=== PATIENT | female | born 1935 | race Caucasian/White ===

== ENCOUNTER 2016-03-11 10:34 | Outpatient (RCR) | payer MEDICARE, OTHER ==
[2015-12-30 11:47] LABS: ALANINE AMINOTRANSFERASE 18 U/L (0-55); ALBUMIN 3.8 G/DL (3.2-4.5); ANION GAP 11 MMOL/L (5-14); ASPARTATE AMINO TRANSFERASE 17 U/L (5-34); BILIRUBIN,TOTAL 0.7 MG/DL (0.1-1.0); BLOOD UREA NITROGEN 10 MG/DL (7-18); BUN/CREATININE RATIO 16; CARBON DIOXIDE 25 MMOL/L (21-32); CHLORIDE 104 MMOL/L (98-107); CREATININE SERUM 0.64 MG/DL (0.60-1.30); GFR ESTIMATED > 60; GLUCOSE 97 MG/DL (70-105); LACTATE DEHYDROGENASE 336 U/L (125-220); POTASSIUM 4.2 MMOL/L (3.6-5.0); SODIUM 140 MMOL/L (135-145); TOTAL PROTEIN 6.3 G/DL (6.4-8.2)
[2015-12-30 15:39] LABS: MEAN CORPUSCULAR HEMOGLOBIN 24 PG (25-34); MEAN CORPUSCULAR HGB CONC 30 G/DL (32-36); MEAN CORPUSCULAR VOLUME 79 FL (80-99); PLATELET COUNT 63 10^3/uL (130-400); RED CELL DISTRIBUTION WIDTH 20.9 % (10.0-14.5)
[2015-12-30 15:41] LABS: BAND NEUTROPHILS 14 %; BASOPHILS % (MANUAL) 4 %; EOSINOPHILS % (MANUAL) 0 %; LYMPHOCYTES % (MANUAL) 11 %; METAMYELOCYTES % 6 %; NEUTROPHILS % (MANUAL) 60 %
[2015-12-30 15:42] LABS: POIKILOCYTOSIS MODERATE; REACTIVE LYMPHOCYTES 3 %; TEAR DROP CELLS MODERATE
[2015-12-30 15:45] LABS: ANISOCYTOSIS MODERATE
[2016-01-06 15:13] LABS: BASOPHILS # (AUTO) 0.6 10^3/uL (0.0-0.1); BASOPHILS % (AUTO) 3 % (0-10); EOSINOPHILS # (AUTO) 0.1 10^3/uL (0.0-0.3); EOSINOPHILS % (AUTO) 0 % (0-10); LYMPHOCYTES # (AUTO) 4.4 X 10^3 (1.0-4.0); LYMPHOCYTES % (AUTO) 18 % (12-44); MEAN CORPUSCULAR HEMOGLOBIN 24 PG (25-34); MEAN CORPUSCULAR HGB CONC 31 G/DL (32-36); MEAN CORPUSCULAR VOLUME 78 FL (80-99); MONOCYTES # (AUTO) 0.7 X 10^3 (0.0-1.0); MONOCYTES % (AUTO) 3 % (0-12); NEUTROPHILS # (AUTO) 18.9 X 10^3 (1.8-7.8); NEUTROPHILS % (AUTO) 76 % (42-75); RED BLOOD COUNT 5.51 10^6/uL (4.35-5.85); RED CELL DISTRIBUTION WIDTH 21.4 % (10.0-14.5); WHITE BLOOD COUNT 24.8 10^3/uL (4.3-11.0)
[2016-01-06 17:20] LABS: PLATELET COUNT 60 10^3/uL (130-400)
[2016-01-06 17:22] LABS: %SAT TOTAL IRON BINDING CAPIC 24 % (15-50); TIBC 363 ug/dL (280-380)
[2016-01-07 08:08] LABS: FERRITIN 48 ng/mL (15-150); UIBC 275 ug/dL (55-450)
[2016-01-10 07:15] LABS: BCR ABL FISH QL SEE FOOTNOTE
[2016-01-13 09:36] LABS: JAK2 MUTATION Detected
[2016-01-13 10:30] LABS: BASOPHILS # (AUTO) 0.6 10^3/uL (0.0-0.1); BASOPHILS % (AUTO) 3 % (0-10); EOSINOPHILS # (AUTO) 0.1 10^3/uL (0.0-0.3); EOSINOPHILS % (AUTO) 1 % (0-10); LYMPHOCYTES # (AUTO) 3.5 X 10^3 (1.0-4.0); LYMPHOCYTES % (AUTO) 18 % (12-44); MEAN CORPUSCULAR HEMOGLOBIN 24 PG (25-34); MEAN CORPUSCULAR HGB CONC 30 G/DL (32-36); MEAN CORPUSCULAR VOLUME 78 FL (80-99); MONOCYTES # (AUTO) 0.6 X 10^3 (0.0-1.0); MONOCYTES % (AUTO) 3 % (0-12); NEUTROPHILS # (AUTO) 14.8 X 10^3 (1.8-7.8); NEUTROPHILS % (AUTO) 76 % (42-75); PLATELET COUNT 40 10^3/uL (130-400); RED BLOOD COUNT 5.64 10^6/uL (4.35-5.85); RED CELL DISTRIBUTION WIDTH 21.4 % (10.0-14.5); RETICULOCYTE % 1.61 % (0.50-2.40); WHITE BLOOD COUNT 19.5 10^3/uL (4.3-11.0)
[2016-01-13 11:47] LABS: BAND NEUTROPHILS 4 %; BASOPHILS % (MANUAL) 3 %; EOSINOPHILS % (MANUAL) 1 %; LYMPHOCYTES % (MANUAL) 14 %; METAMYELOCYTES % 1 %; NEUTROPHILS % (MANUAL) 72 %
[2016-01-13 11:48] LABS: ANISOCYTOSIS MARKED; POLYCHROMASIA SLIGHT; TEAR DROP CELLS MODERATE
[2016-02-11 12:18] LABS: MP RPT # MP-16-0013240
[~2016-03-11 10:34] MED LIST: LIDOCAINE 2% ONE
[2016-03-11 11:25] LABS: ALANINE AMINOTRANSFERASE 22 U/L (0-55); ALBUMIN 4.2 G/DL (3.2-4.5); ANION GAP 3 MMOL/L (5-14); ASPARTATE AMINO TRANSFERASE 19 U/L (5-34); BILIRUBIN,TOTAL 0.6 MG/DL (0.1-1.0); BLOOD UREA NITROGEN 17 MG/DL (7-18); BUN/CREATININE RATIO 26; CALCIUM 9.4 MG/DL (8.5-10.1); CARBON DIOXIDE 32 MMOL/L (21-32); CHLORIDE 104 MMOL/L (98-107); CREATININE SERUM 0.65 MG/DL (0.60-1.30); GFR ESTIMATED > 60; GLUCOSE 92 MG/DL (70-105); LACTATE DEHYDROGENASE 369 U/L (125-220); POTASSIUM 4.7 MMOL/L (3.6-5.0); SODIUM 139 MMOL/L (135-145); TOTAL PROTEIN 6.6 G/DL (6.4-8.2)
[2016-03-11 11:51] LABS: MEAN CORPUSCULAR HEMOGLOBIN 24 PG (25-34); MEAN CORPUSCULAR HGB CONC 30 G/DL (32-36); MEAN CORPUSCULAR VOLUME 78 FL (80-99); RED BLOOD COUNT 5.77 10^6/uL (4.35-5.85); RED CELL DISTRIBUTION WIDTH 20.8 % (10.0-14.5); WHITE BLOOD COUNT 19.5 10^3/uL (4.3-11.0)
[2016-03-11 13:52] LABS: PLATELET COUNT 29 10^3/uL (130-400)
== END 2016-03-29 | disposition home or self-care (01) ==
LOC: ONC 10:34
PROVIDERS: ATTEND Internal Medicine Hematology & Oncology
DX: D47.1 Chronic myeloproliferative disease (principal); D69.6 Thrombocytopenia, unspecified; D72.829 Elevated white blood cell count, unspecified; R16.1 Splenomegaly, not elsewhere classified; Z79.899 Other long term (current) drug therapy
CPT/HCPCS: 36415; 38221; 80053; 80074; 81270; 82728; 83540; 83615; 85007; 85025; 85027; 85045; 88184; 88185; 88305; 88311; 88313; 88341; 88342; 88368; 88369; 99213; 99214

== ENCOUNTER 2016-06-17 10:36 | Outpatient (RCR) | payer MEDICARE, OTHER ==
--- OUTSIDE RECORDS SUMMARY | 2016-04-08 10:44 | XMS REPORT | Continuity of Care Document ---
Author Author [facility] Organization [facility] Address Unknown Phone Unavailable Care Team Providers Care Soil Engineer Name Role Phone MARCK NAGY MD PCP Insurance Providers Payer Name Policy Number Subscriber Name Relationship [employer] [id number] Flor Correa 18 Self / Same As Patient [facility] [place] [id number] Kuldip Correa 01 Problems No problem information available. Medications No medication information available. Social History Social History Problem Response Recorded Date/Time Recent Foreign Travel No 12/30/2015 9:52am Hospital Discharge Instructions No hospital discharge instructions. Plan of Care Prescriptions See Medication Section Functional Status No functional status results. Allergies, Adverse Reactions, Alerts Unable to obtain allergies. Immunizations No immunization records. Vital Signs No known vital signs results. Results Laboratory Results Test Name Result Units Flags Reference Collection Date/Time Result Date/ Time Comments White Blood Count 19.5 10^3/uL H 4.3-11.0 03/11/2016 10:54am 03/11/2016 1 :53pm Red Blood Count 5.77 10^6/uL 4.35-5.85 03/11/2016 10:54am 03/11/2016 1: 53pm Hemoglobin 13.6 G/DL 11.5-16.0 03/11/2016 10:54am 03/11/2016 1:53pm Hematocrit 45 % 35-52 03/11/2016 10:54am 03/11/2016 1:53pm Mean Corpuscular Volume 78 FL L 80-99 03/11/2016 10:54am 03/11/2016 1: 53pm Mean Corpuscular Hemoglobin 24 PG L 25-34 03/11/2016 10:54am 03/11/2016 1 :53pm Mean Corpuscular Hemoglobin Concent 30 G/DL L 32-36 03/11/2016 10:54am 1:53pm Red Cell Distribution Width 20.8 % H 10.0-14.5 03/11/2016 10:54am 2015 1:53pm Platelet Count 29 10^3/uL CL 130-400 03/11/2016 10:54am 03/11/2016 1: 53pm RESULTS GIVEN TO AT 13:40. LJJ Neutrophils (%) (Auto) 76 % H 42-75 01/13/2016 10:01/13/2016 11: 47am Lymphocytes (%) (Auto) 18 % 12-44 01/13/2016 10:01/13/2016 11: 47am Monocytes (%) (Auto) 3 % 0-12 01/13/2016 10:01/13/2016 11:47am Eosinophils (%) (Auto) 1 % 0-10 01/13/2016 10:01/13/2016 11:47am Basophils (%) (Auto) 3 % 0-10 01/13/2016 10:01/13/2016 11:47am Neutrophils # (Auto) 14.8 X 10^3 H 1.8-7.8 01/13/2016 10:01/13/2016 11:47am Lymphocytes # (Auto) 3.5 X 10^3 1.0-4.0 01/13/2016 10:01/13/2016 11:47am Monocytes # (Auto) 0.6 X 10^3 0.0-1.0 01/13/2016 10:01/13/2016 11: 47am Eosinophils # (Auto) 0.1 10^3/uL 0.0-0.3 01/13/2016 10:am 01/13/2016 11:47am Basophils # (Auto) 0.6 10^3/uL H 0.0-0.1 01/13/2016 10:01/13/2016 11 :47am Neutrophils % (Manual) 72 % 01/13/2016 10:am 01/13/2016 11:48am Band Neutrophils 4 % 01/13/2016 10:am 01/13/2016 11:48am Lymphocytes % (Manual) 14 % 01/13/2016 10:am 01/13/2016 11:48am Monocytes % (Manual) 5 % 01/13/2016 10:am 01/13/2016 11:48am Eosinophils % (Manual) 1 % 01/13/2016 10:am 01/13/2016 11:48am Basophils % (Manual) 3 % 01/13/2016 10:am 01/13/2016 11:48am Metamyelocytes % 1 % 01/13/2016 10:am 01/13/2016 11:48am Reactive Lymphocytes 3 % 12/30/2015 9:15am 12/30/2015 3:45pm Nucleated Red Blood Cells 1 12/30/2015 9:am 12/30/2015 3:45pm Smudge Cells SLIGHT 12/30/2015 9:15am 12/30/2015 3:45pm Polychromasia SLIGHT 01/13/2016 10:am 01/13/2016 11:48am Poikilocytosis MODERATE 12/30/2015 9:15am 12/30/2015 3:45pm Basophilic Stippling SLIGHT 01/13/2016 10:am 01/13/2016 11:48am Anisocytosis MARKED 01/13/2016 10:am 01/13/2016 11:48am Tear Drop Cells MODERATE 01/13/2016 10:am 01/13/2016 11:48am Elliptocytes MODERATE 12/30/2015 9:15am 12/30/2015 3:45pm Toxic Granulation 2+ 12/30/2015 9:15am 12/30/2015 3:45pm Absolute Reticulocyte Count 91 10e9/L H 24-90 01/13/2016 10:am 2015 11:47am Percent Reticulocyte Count 1.61 % 0.50-2.40 01/13/2016 10:26am 2015 11:47am Sodium Level 139 MMOL/L 135-145 03/11/2016 10:54am 03/11/2016 11:27am Potassium Level 4.7 MMOL/L 3.6-5.0 03/11/2016 10:54am 03/11/2016 11: 27am Chloride Level 104 MMOL/L 98-107 03/11/2016 10:54am 03/11/2016 11:27am Carbon Dioxide Level 32 MMOL/L 21-32 03/11/2016 10:54am 03/11/2016 11: 27am Anion Gap 3 MMOL/L L 5-14 03/11/2016 10:54am 03/11/2016 11:27am Blood Urea Nitrogen 17 MG/DL 7-18 03/11/2016 10:54am 03/11/2016 11: 27am Creatinine 0.65 MG/DL 0.60-1.30 03/11/2016 10:54am 03/11/2016 11:27am BUN/Creatinine Ratio 26 03/11/2016 10:54am 03/11/2016 11:27am Estimat Glomerular Filtration Rate > 60 03/11/2016 10:54am 2015 11:27am GFR INTERPRETIVE DATA UNITS FOR ESTIMATED GFR (eGFR): mL/min/1.73 M2 REFERENCE RANGE FOR ESTIMATED GFR (eGFR) eGFR NORMAL eGFR >60 MODERATELY DECREASED eGFR 30-59 SEVERLY DECREASED eGFR 15-29 KIDNEY FAILURE <15 (OR DIALYSIS) Glucose Level 92 MG/DL 70-105 03/11/2016 10:54am 03/11/2016 11:27am Calcium Level 9.4 MG/DL 8.5-10.1 03/11/2016 10:54am 03/11/2016 11:27am Total Bilirubin 0.6 MG/DL 0.1-1.0 03/11/2016 10:54am 03/11/2016 11: 27am Alkaline Phosphatase 63 U/L 40-136 03/11/2016 10:54am 03/11/2016 11: 27am Aspartate Amino Transf (AST/SGOT) 19 U/L 5-34 03/11/2016 10:54am 2015 11:27am Alanine Aminotransferase (ALT/SGPT) 22 U/L 0-55 03/11/2016 10:54am 11:27am Lactate Dehydrogenase 369 U/L H 125-220 03/11/2016 10:54am 03/11/2016 11: 27am Total Protein 6.6 G/DL 6.4-8.2 03/11/2016 10:54am 03/11/2016 11:27am Albumin 4.2 G/DL 3.2-4.5 03/11/2016 10:54am 03/11/2016 11:27am Ferritin 48 ng/mL 15-150 01/06/2016 3:09pm 01/07/2016 8:08am Test performed at [facility], CLIA# [id number] [address] [facility] [place] [address] Iron Level 88 ug/dL 35-180 01/06/2016 3:09pm 01/07/2016 8:08am Transferrin % Saturation 24 % 15-50 01/06/2016 3:09pm 01/07/2016 8: 08am Total Iron Binding Capacity 363 ug/dL 280-380 01/06/2016 3:09pm 2015 8:08am Unsaturated Iron Binding Capacity 275 ug/dL 55-450 01/06/2016 3:09pm 8:08am Test performed at [facility], CLIA# [id number] [address] [place] [address] Flow Cytometry Pathologist Review [id number] 01/06/2016 3:09pm 02/11/2016 12:18pm Procedures No known history of procedures. Encounters Encounter Location Arrival/Admit Date Discharge/Depart Date Attending Provider Discharged Recurring [facility] 03/11/16 10:34am 11:59pm WILFRED DENNY
[2016-04-08 11:35] LABS: ALANINE AMINOTRANSFERASE 26 U/L (0-55); ALBUMIN 4.2 G/DL (3.2-4.5); ANION GAP 10 MMOL/L (5-14); ASPARTATE AMINO TRANSFERASE 20 U/L (5-34); BILIRUBIN,TOTAL 0.5 MG/DL (0.1-1.0); BLOOD UREA NITROGEN 19 MG/DL (7-18); BUN/CREATININE RATIO 27; CALCIUM 9.3 MG/DL (8.5-10.1); CARBON DIOXIDE 26 MMOL/L (21-32); CHLORIDE 105 MMOL/L (98-107); CREATININE SERUM 0.71 MG/DL (0.60-1.30); GFR ESTIMATED > 60; GLUCOSE 76 MG/DL (70-105); LACTATE DEHYDROGENASE 418 U/L (125-220); POTASSIUM 4.4 MMOL/L (3.6-5.0); SODIUM 141 MMOL/L (135-145); TOTAL PROTEIN 6.4 G/DL (6.4-8.2)
[2016-04-08 11:40] LABS: MEAN CORPUSCULAR HEMOGLOBIN 24 PG (25-34); MEAN CORPUSCULAR HGB CONC 31 G/DL (32-36); MEAN CORPUSCULAR VOLUME 78 FL (80-99); RED BLOOD COUNT 5.12 10^6/uL (4.35-5.85); WHITE BLOOD COUNT 23.5 10^3/uL (4.3-11.0)
[2016-04-08 11:41] LABS: PLATELET COUNT 33 10^3/uL (130-400)
[2016-05-06 10:55] LABS: BASOPHILS # (AUTO) 0.6 10^3/uL (0.0-0.1); BASOPHILS % (AUTO) 3 % (0-10); EOSINOPHILS # (AUTO) 0.1 10^3/uL (0.0-0.3); EOSINOPHILS % (AUTO) 1 % (0-10); LYMPHOCYTES # (AUTO) 7.2 X 10^3 (1.0-4.0); LYMPHOCYTES % (AUTO) 36 % (12-44); MEAN CORPUSCULAR HEMOGLOBIN 25 PG (25-34); MEAN CORPUSCULAR HGB CONC 31 G/DL (32-36); MEAN CORPUSCULAR VOLUME 80 FL (80-99); MONOCYTES # (AUTO) 0.4 X 10^3 (0.0-1.0); MONOCYTES % (AUTO) 2 % (0-12); NEUTROPHILS # (AUTO) 11.9 X 10^3 (1.8-7.8); NEUTROPHILS % (AUTO) 59 % (42-75); PLATELET COUNT 47 10^3/uL (130-400); RED BLOOD COUNT 4.74 10^6/uL (4.35-5.85); RED CELL DISTRIBUTION WIDTH 22.6 % (10.0-14.5); WHITE BLOOD COUNT 20.2 10^3/uL (4.3-11.0)
[2016-05-06 11:15] LABS: ALANINE AMINOTRANSFERASE 21 U/L (0-55); ALBUMIN 4.5 G/DL (3.2-4.5); ANION GAP 7 MMOL/L (5-14); ASPARTATE AMINO TRANSFERASE 20 U/L (5-34); BILIRUBIN,TOTAL 0.8 MG/DL (0.1-1.0); BLOOD UREA NITROGEN 15 MG/DL (7-18); BUN/CREATININE RATIO 21; CALCIUM 9.1 MG/DL (8.5-10.1); CARBON DIOXIDE 28 MMOL/L (21-32); CHLORIDE 105 MMOL/L (98-107); CREATININE SERUM 0.71 MG/DL (0.60-1.30); GFR ESTIMATED > 60; GLUCOSE 85 MG/DL (70-105); LACTATE DEHYDROGENASE 424 U/L (125-220); POTASSIUM 4.3 MMOL/L (3.6-5.0); SODIUM 140 MMOL/L (135-145); TOTAL PROTEIN 6.4 G/DL (6.4-8.2)
[2016-06-17 11:35] LABS: ALANINE AMINOTRANSFERASE 27 U/L (0-55); ALBUMIN 4.2 G/DL (3.2-4.5); ANION GAP 6 MMOL/L (5-14); ASPARTATE AMINO TRANSFERASE 23 U/L (5-34); BILIRUBIN,TOTAL 0.8 MG/DL (0.1-1.0); BLOOD UREA NITROGEN 14 MG/DL (7-18); BUN/CREATININE RATIO 19; CALCIUM 9.4 MG/DL (8.5-10.1); CARBON DIOXIDE 32 MMOL/L (21-32); CHLORIDE 104 MMOL/L (98-107); CREATININE SERUM 0.74 MG/DL (0.60-1.30); GFR ESTIMATED > 60; GLUCOSE 95 MG/DL (70-105); LACTATE DEHYDROGENASE 431 U/L (125-220); POTASSIUM 4.6 MMOL/L (3.6-5.0); SODIUM 142 MMOL/L (135-145); TOTAL PROTEIN 6.4 G/DL (6.4-8.2)
[2016-06-17 11:50] LABS: BASOPHILS # (AUTO) 0.3 10^3/uL (0.0-0.1); BASOPHILS % (AUTO) 2 % (0-10); EOSINOPHILS # (AUTO) 0.1 10^3/uL (0.0-0.3); EOSINOPHILS % (AUTO) 1 % (0-10); LYMPHOCYTES # (AUTO) 4.9 X 10^3 (1.0-4.0); LYMPHOCYTES % (AUTO) 31 % (12-44); MEAN CORPUSCULAR HEMOGLOBIN 27 PG (25-34); MEAN CORPUSCULAR HGB CONC 31 G/DL (32-36); MEAN CORPUSCULAR VOLUME 86 FL (80-99); MONOCYTES # (AUTO) 0.4 X 10^3 (0.0-1.0); MONOCYTES % (AUTO) 3 % (0-12); NEUTROPHILS # (AUTO) 10.1 X 10^3 (1.8-7.8); NEUTROPHILS % (AUTO) 64 % (42-75); PLATELET COUNT 38 10^3/uL (130-400); RED BLOOD COUNT 4.08 10^6/uL (4.35-5.85); RED CELL DISTRIBUTION WIDTH 22.4 % (10.0-14.5); WHITE BLOOD COUNT 15.9 10^3/uL (4.3-11.0)
[2016-06-17 11:52] LABS: BILIRUBIN,URINE NEGATIVE (NEGATIVE); KETONES,URINE NEGATIVE (NEGATIVE); LEUKOCYTE ESTERASE ,URINE NEGATIVE (NEGATIVE); NITRITE,URINE NEGATIVE (NEGATIVE); PH,URINE 7 (5-9); PROTEIN,URINE NEGATIVE (NEGATIVE); UROBILINOGEN,URINE NORMAL (NORMAL)
[2016-06-17 12:03] LABS: SQUAMOUS EPITHELIAL CELL,UR RARE /HPF
== END 2016-07-07 | disposition home or self-care (01) ==
LOC: ONC 10:36
PROVIDERS: ATTEND Internal Medicine Hematology & Oncology
DX: D47.1 Chronic myeloproliferative disease (principal); D69.6 Thrombocytopenia, unspecified; Z79.899 Other long term (current) drug therapy
CPT/HCPCS: 36415; 80053; 81000; 83615; 85025; 99213

== ENCOUNTER 2016-10-14 10:42 | Outpatient (RCR) | payer MEDICARE, OTHER ==
[2016-08-19 11:33] LABS: MEAN CORPUSCULAR HEMOGLOBIN 27 PG (25-34); MEAN CORPUSCULAR HGB CONC 31 G/DL (32-36); MEAN CORPUSCULAR VOLUME 85 FL (80-99); PLATELET COUNT 56 10^3/uL (130-400); RED CELL DISTRIBUTION WIDTH 18.5 % (10.0-14.5); WHITE BLOOD COUNT 29.6 10^3/uL (4.3-11.0)
[2016-08-19 11:47] LABS: ALANINE AMINOTRANSFERASE 16 U/L (0-55); ALBUMIN 4.1 G/DL (3.2-4.5); ANION GAP 10 MMOL/L (5-14); ASPARTATE AMINO TRANSFERASE 18 U/L (5-34); BILIRUBIN,TOTAL 0.5 MG/DL (0.1-1.0); BLOOD UREA NITROGEN 14 MG/DL (7-18); BUN/CREATININE RATIO 20; CALCIUM 9.8 MG/DL (8.5-10.1); CARBON DIOXIDE 29 MMOL/L (21-32); CHLORIDE 101 MMOL/L (98-107); CREATININE SERUM 0.71 MG/DL (0.60-1.30); GFR ESTIMATED > 60; GLUCOSE 91 MG/DL (70-105); LACTATE DEHYDROGENASE 447 U/L (125-220); POTASSIUM 4.6 MMOL/L (3.6-5.0); SODIUM 140 MMOL/L (135-145)
[2016-10-14 11:18] LABS: BASOPHILS # (AUTO) 0.6 10^3/uL (0.0-0.1); BASOPHILS % (AUTO) 3 % (0-10); EOSINOPHILS # (AUTO) 0.1 10^3/uL (0.0-0.3); EOSINOPHILS % (AUTO) 0 % (0-10); LYMPHOCYTES # (AUTO) 6.4 X 10^3 (1.0-4.0); LYMPHOCYTES % (AUTO) 36 % (12-44); MEAN CORPUSCULAR HEMOGLOBIN 26 PG (25-34); MEAN CORPUSCULAR HGB CONC 30 G/DL (32-36); MEAN CORPUSCULAR VOLUME 85 FL (80-99); MONOCYTES # (AUTO) 0.7 X 10^3 (0.0-1.0); MONOCYTES % (AUTO) 4 % (0-12); NEUTROPHILS # (AUTO) 10.4 X 10^3 (1.8-7.8); NEUTROPHILS % (AUTO) 57 % (42-75); RED BLOOD COUNT 4.75 10^6/uL (4.35-5.85); WHITE BLOOD COUNT 18.1 10^3/uL (4.3-11.0)
[2016-10-14 12:00] LABS: PLATELET COUNT 33 10^3/uL (130-400)
[2016-10-14 12:04] LABS: ALANINE AMINOTRANSFERASE 24 U/L (0-55); ALBUMIN 4.3 GM/DL (3.2-4.5); ANION GAP 4 MMOL/L (5-14); ASPARTATE AMINO TRANSFERASE 21 U/L (5-34); BILIRUBIN,TOTAL 0.7 MG/DL (0.1-1.0); BLOOD UREA NITROGEN 14 MG/DL (7-18); BUN/CREATININE RATIO 19; CALCIUM 9.3 MG/DL (8.5-10.1); CARBON DIOXIDE 33 MMOL/L (21-32); CHLORIDE 103 MMOL/L (98-107); CREATININE SERUM 0.72 MG/DL (0.60-1.30); GFR ESTIMATED > 60; GLUCOSE 90 MG/DL (70-105); LACTATE DEHYDROGENASE 446 U/L (125-220); POTASSIUM 4.4 MMOL/L (3.6-5.0); SODIUM 140 MMOL/L (135-145); TOTAL PROTEIN 6.5 GM/DL (6.4-8.2)
== END 2016-11-17 | disposition home or self-care (01) ==
LOC: ONC 10:42
PROVIDERS: ATTEND Internal Medicine Hematology & Oncology
DX: D69.6 Thrombocytopenia, unspecified (principal); D75.81 Myelofibrosis; D72.829 Elevated white blood cell count, unspecified; Z79.899 Other long term (current) drug therapy
CPT/HCPCS: 36415; 80053; 83615; 85025; 99213

== ENCOUNTER 2016-12-15 10:10 | Outpatient (RCR) | payer MEDICARE, OTHER ==
[2016-12-15 10:41] LABS: ALANINE AMINOTRANSFERASE 27 U/L (0-55); ALBUMIN 4.3 GM/DL (3.2-4.5); ANION GAP 10 MMOL/L (5-14); ASPARTATE AMINO TRANSFERASE 23 U/L (5-34); BILIRUBIN,TOTAL 0.6 MG/DL (0.1-1.0); BLOOD UREA NITROGEN 16 MG/DL (7-18); BUN/CREATININE RATIO 21; CALCIUM 9.5 MG/DL (8.5-10.1); CARBON DIOXIDE 30 MMOL/L (21-32); CHLORIDE 100 MMOL/L (98-107); CREATININE SERUM 0.75 MG/DL (0.60-1.30); GFR ESTIMATED > 60; GLUCOSE 100 MG/DL (70-105); LACTATE DEHYDROGENASE 441 U/L (125-220); POTASSIUM 3.6 MMOL/L (3.6-5.0); SODIUM 140 MMOL/L (135-145)
[2016-12-15 10:43] LABS: BASOPHILS # (AUTO) 0.7 10^3/uL (0.0-0.1); BASOPHILS % (AUTO) 3 % (0-10); EOSINOPHILS # (AUTO) 0.1 10^3/uL (0.0-0.3); EOSINOPHILS % (AUTO) 0 % (0-10); LYMPHOCYTES # (AUTO) 6.9 X 10^3 (1.0-4.0); LYMPHOCYTES % (AUTO) 33 % (12-44); MEAN CORPUSCULAR HEMOGLOBIN 27 PG (25-34); MEAN CORPUSCULAR HGB CONC 31 G/DL (32-36); MEAN CORPUSCULAR VOLUME 87 FL (80-99); MONOCYTES # (AUTO) 0.3 X 10^3 (0.0-1.0); MONOCYTES % (AUTO) 1 % (0-12); NEUTROPHILS # (AUTO) 13.2 X 10^3 (1.8-7.8); NEUTROPHILS % (AUTO) 62 % (42-75); PLATELET COUNT 51 10^3/uL (130-400); RED BLOOD COUNT 4.61 10^6/uL (4.35-5.85); RED CELL DISTRIBUTION WIDTH 19.2 % (10.0-14.5)
[2016-12-15 10:44] LABS: WHITE BLOOD COUNT 21.2 10^3/uL (4.3-11.0)
== END 2016-12-19 | disposition home or self-care (01) ==
LOC: ONC 10:10
PROVIDERS: ATTEND Internal Medicine Hematology & Oncology
DX: D69.6 Thrombocytopenia, unspecified (principal); D75.81 Myelofibrosis; D72.829 Elevated white blood cell count, unspecified; Z79.899 Other long term (current) drug therapy
CPT/HCPCS: 36415; 80053; 83615; 85025; 99213

== ENCOUNTER 2017-02-17 11:16 | Outpatient (RCR) | payer MEDICARE, OTHER ==
[2017-02-17 11:38] LABS: BASOPHILS # (AUTO) 0.6 10^3/uL (0.0-0.1); BASOPHILS % (AUTO) 3 % (0-10); EOSINOPHILS # (AUTO) 0.1 10^3/uL (0.0-0.3); EOSINOPHILS % (AUTO) 0 % (0-10); HEMATOCRIT 42 % (35-52); HEMOGLOBIN 12.7 G/DL (11.5-16.0); LYMPHOCYTES # (AUTO) 6.4 X 10^3 (1.0-4.0); LYMPHOCYTES % (AUTO) 32 % (12-44); MEAN CORPUSCULAR HEMOGLOBIN 27 PG (25-34); MEAN CORPUSCULAR HGB CONC 31 G/DL (32-36); MEAN CORPUSCULAR VOLUME 88 FL (80-99); MONOCYTES # (AUTO) 0.3 X 10^3 (0.0-1.0); MONOCYTES % (AUTO) 1 % (0-12); NEUTROPHILS # (AUTO) 12.7 X 10^3 (1.8-7.8); NEUTROPHILS % (AUTO) 64 % (42-75); PLATELET COUNT 48 10^3/uL (130-400); RED BLOOD COUNT 4.76 10^6/uL (4.35-5.85); RED CELL DISTRIBUTION WIDTH 18.4 % (10.0-14.5)
[2017-02-17 11:52] LABS: ALANINE AMINOTRANSFERASE 23 U/L (0-55); ALBUMIN 4.5 GM/DL (3.2-4.5); ALKALINE PHOSPHATASE 56 U/L (40-136); BILIRUBIN,TOTAL 0.8 MG/DL (0.1-1.0); BUN/CREATININE RATIO 17; CALCIUM 9.7 MG/DL (8.5-10.1); CARBON DIOXIDE 33 MMOL/L (21-32); CHLORIDE 102 MMOL/L (98-107); CREATININE SERUM 0.71 MG/DL (0.60-1.30); GFR ESTIMATED > 60; GLUCOSE 86 MG/DL (70-105); POTASSIUM 4.1 MMOL/L (3.6-5.0); SODIUM 142 MMOL/L (135-145); TOTAL PROTEIN 7.3 GM/DL (6.4-8.2)
== END 2017-04-14 07:41 | disposition home or self-care (01) ==
LOC: ONC 11:16
PROVIDERS: ATTEND Internal Medicine Hematology & Oncology
DX: D69.6 Thrombocytopenia, unspecified (principal); D75.81 Myelofibrosis; D72.829 Elevated white blood cell count, unspecified; Z79.899 Other long term (current) drug therapy
CPT/HCPCS: 36415; 80053; 83615; 85025; 99213

== ENCOUNTER 2017-04-14 10:33 | Outpatient (RCR) | payer MEDICARE, OTHER ==
[2017-04-14 10:58] LABS: BASOPHILS # (AUTO) 0.5 10^3/uL (0.0-0.1); BASOPHILS % (AUTO) 3 % (0-10); EOSINOPHILS % (AUTO) 0 % (0-10); HEMATOCRIT 40 % (35-52); HEMOGLOBIN 12.7 G/DL (11.5-16.0); LYMPHOCYTES # (AUTO) 5.5 X 10^3 (1.0-4.0); LYMPHOCYTES % (AUTO) 31 % (12-44); MEAN CORPUSCULAR HEMOGLOBIN 27 PG (25-34); MEAN CORPUSCULAR HGB CONC 32 G/DL (32-36); MEAN CORPUSCULAR VOLUME 86 FL (80-99); MONOCYTES # (AUTO) 0.4 X 10^3 (0.0-1.0); MONOCYTES % (AUTO) 2 % (0-12); NEUTROPHILS # (AUTO) 11.2 X 10^3 (1.8-7.8); NEUTROPHILS % (AUTO) 63 % (42-75); PLATELET COUNT 55 10^3/uL (130-400); RED BLOOD COUNT 4.68 10^6/uL (4.35-5.85); RED CELL DISTRIBUTION WIDTH 18.7 % (10.0-14.5); WHITE BLOOD COUNT 17.7 10^3/uL (4.3-11.0)
[2017-04-14 11:12] LABS: ALANINE AMINOTRANSFERASE 24 U/L (0-55); ALBUMIN 4.3 GM/DL (3.2-4.5); ALKALINE PHOSPHATASE 48 U/L (40-136); BILIRUBIN,TOTAL 0.7 MG/DL (0.1-1.0); BUN/CREATININE RATIO 27; CALCIUM 9.4 MG/DL (8.5-10.1); CARBON DIOXIDE 29 MMOL/L (21-32); CHLORIDE 103 MMOL/L (98-107); GFR ESTIMATED > 60; GLUCOSE 72 MG/DL (70-105); POTASSIUM 4.4 MMOL/L (3.6-5.0); SODIUM 140 MMOL/L (135-145); TOTAL PROTEIN 6.6 GM/DL (6.4-8.2)
== END 2017-06-15 14:52 | disposition home or self-care (01) ==
LOC: ONC 10:33
PROVIDERS: ATTEND Internal Medicine Hematology & Oncology
DX: D69.6 Thrombocytopenia, unspecified (principal); D75.81 Myelofibrosis; D72.829 Elevated white blood cell count, unspecified; Z79.899 Other long term (current) drug therapy
CPT/HCPCS: 80053; 83615; 85025

== ENCOUNTER 2017-10-06 10:53 | Outpatient (RCR) | payer MEDICARE, OTHER ==
[2017-10-06 11:13] LABS: BASOPHILS # (AUTO) 0.5 10^3/uL (0.0-0.1); BASOPHILS % (AUTO) 3 % (0-10); EOSINOPHILS # (AUTO) 0.1 10^3/uL (0.0-0.3); EOSINOPHILS % (AUTO) 0 % (0-10); HEMATOCRIT 40 % (35-52); HEMOGLOBIN 12.6 G/DL (11.5-16.0); LYMPHOCYTES # (AUTO) 7.1 X 10^3 (1.0-4.0); LYMPHOCYTES % (AUTO) 33 % (12-44); MEAN CORPUSCULAR HEMOGLOBIN 27 PG (25-34); MEAN CORPUSCULAR HGB CONC 31 G/DL (32-36); MEAN CORPUSCULAR VOLUME 87 FL (80-99); MONOCYTES # (AUTO) 0.4 X 10^3 (0.0-1.0); MONOCYTES % (AUTO) 2 % (0-12); NEUTROPHILS # (AUTO) 13.5 X 10^3 (1.8-7.8); NEUTROPHILS % (AUTO) 62 % (42-75); PLATELET COUNT 61 10^3/uL (130-400); RED BLOOD COUNT 4.65 10^6/uL (4.35-5.85); RED CELL DISTRIBUTION WIDTH 19.7 % (10.0-14.5); WHITE BLOOD COUNT 21.6 10^3/uL (4.3-11.0)
[2017-10-06 11:35] LABS: ALANINE AMINOTRANSFERASE 26 U/L (0-55); ALBUMIN 4.4 GM/DL (3.2-4.5); ALKALINE PHOSPHATASE 59 U/L (40-136); BILIRUBIN,TOTAL 0.7 MG/DL (0.1-1.0); BUN/CREATININE RATIO 19; CALCIUM 9.6 MG/DL (8.5-10.1); CARBON DIOXIDE 32 MMOL/L (21-32); CHLORIDE 100 MMOL/L (98-107); CREATININE SERUM 0.69 MG/DL (0.60-1.30); GFR ESTIMATED > 60; GLUCOSE 107 MG/DL (70-105); POTASSIUM 4.3 MMOL/L (3.6-5.0); SODIUM 135 MMOL/L (135-145); TOTAL PROTEIN 6.7 GM/DL (6.4-8.2)
== END 2017-12-07 14:57 | disposition home or self-care (01) ==
LOC: ONC 10:53
PROVIDERS: ATTEND Internal Medicine Hematology & Oncology
DX: D69.6 Thrombocytopenia, unspecified (principal); D75.81 Myelofibrosis; D72.829 Elevated white blood cell count, unspecified; Z79.899 Other long term (current) drug therapy
CPT/HCPCS: 36415; 80053; 83615; 85025; 99213

== ENCOUNTER 2017-12-08 14:08 | Outpatient (RCR) | payer MEDICARE, OTHER ==
[2017-12-08 14:19] LABS: BASOPHILS # (AUTO) 0.3 10^3/uL (0.0-0.1); BASOPHILS % (AUTO) 2 % (0-10); EOSINOPHILS # (AUTO) 0.1 10^3/uL (0.0-0.3); EOSINOPHILS % (AUTO) 0 % (0-10); HEMATOCRIT 40 % (35-52); HEMOGLOBIN 12.6 G/DL (11.5-16.0); LYMPHOCYTES # (AUTO) 6.4 X 10^3 (1.0-4.0); LYMPHOCYTES % (AUTO) 41 % (12-44); MEAN CORPUSCULAR HEMOGLOBIN 27 PG (25-34); MEAN CORPUSCULAR HGB CONC 31 G/DL (32-36); MEAN CORPUSCULAR VOLUME 85 FL (80-99); MONOCYTES # (AUTO) 0.4 X 10^3 (0.0-1.0); MONOCYTES % (AUTO) 2 % (0-12); NEUTROPHILS # (AUTO) 8.5 X 10^3 (1.8-7.8); NEUTROPHILS % (AUTO) 54 % (42-75); PLATELET COUNT 47 10^3/uL (130-400); RED BLOOD COUNT 4.76 10^6/uL (4.35-5.85); RED CELL DISTRIBUTION WIDTH 19.7 % (10.0-14.5); WHITE BLOOD COUNT 15.6 10^3/uL (4.3-11.0)
[2017-12-08 14:43] LABS: ALANINE AMINOTRANSFERASE 22 U/L (0-55); ALBUMIN 4.5 GM/DL (3.2-4.5); ALKALINE PHOSPHATASE 58 U/L (40-136); BILIRUBIN,TOTAL 0.8 MG/DL (0.1-1.0); BUN/CREATININE RATIO 20; CALCIUM 9.9 MG/DL (8.5-10.1); CARBON DIOXIDE 32 MMOL/L (21-32); CHLORIDE 101 MMOL/L (98-107); CREATININE SERUM 0.76 MG/DL (0.60-1.30); GFR ESTIMATED > 60; GLUCOSE 101 MG/DL (70-105); POTASSIUM 4.3 MMOL/L (3.6-5.0); SODIUM 139 MMOL/L (135-145); TOTAL PROTEIN 6.9 GM/DL (6.4-8.2)
== END 2017-12-19 | disposition home or self-care (01) ==
LOC: ONC 14:08
PROVIDERS: ATTEND Internal Medicine Hematology & Oncology
DX: D69.6 Thrombocytopenia, unspecified (principal); D75.81 Myelofibrosis; D72.829 Elevated white blood cell count, unspecified; Z79.899 Other long term (current) drug therapy
CPT/HCPCS: 36415; 80053; 83615; 85025; 99213

== ENCOUNTER → 2018-05-09 | Outpatient (RCR) | payer MEDICARE, OTHER ==
[2018-02-08 11:03] LABS: BASOPHILS # (AUTO) 0.4 10^3/uL (0.0-0.1); BASOPHILS % (AUTO) 2 % (0-10); EOSINOPHILS # (AUTO) 0.1 10^3/uL (0.0-0.3); EOSINOPHILS % (AUTO) 0 % (0-10); HEMATOCRIT 39 % (35-52); HEMOGLOBIN 11.9 G/DL (11.5-16.0); LYMPHOCYTES # (AUTO) 7.1 X 10^3 (1.0-4.0); LYMPHOCYTES % (AUTO) 35 % (12-44); MEAN CORPUSCULAR HEMOGLOBIN 27 PG (25-34); MEAN CORPUSCULAR HGB CONC 31 G/DL (32-36); MEAN CORPUSCULAR VOLUME 86 FL (80-99); MONOCYTES # (AUTO) 0.4 X 10^3 (0.0-1.0); MONOCYTES % (AUTO) 2 % (0-12); NEUTROPHILS # (AUTO) 12.4 X 10^3 (1.8-7.8); NEUTROPHILS % (AUTO) 61 % (42-75); PLATELET COUNT 51 10^3/uL (130-400); RED CELL DISTRIBUTION WIDTH 20.2 % (10.0-14.5); WHITE BLOOD COUNT 20.3 10^3/uL (4.3-11.0)
[2018-02-08 11:24] LABS: ALANINE AMINOTRANSFERASE 25 U/L (0-55); ALBUMIN 4.4 GM/DL (3.2-4.5); ALKALINE PHOSPHATASE 71 U/L (40-136); BILIRUBIN,TOTAL 0.7 MG/DL (0.1-1.0); BUN/CREATININE RATIO 19; CALCIUM 9.9 MG/DL (8.5-10.1); CARBON DIOXIDE 30 MMOL/L (21-32); CHLORIDE 99 MMOL/L (98-107); CREATININE SERUM 0.73 MG/DL (0.60-1.30); GFR ESTIMATED > 60; GLUCOSE 99 MG/DL (70-105); POTASSIUM 4.5 MMOL/L (3.6-5.0); SODIUM 138 MMOL/L (135-145)
[2018-04-13 12:46] LABS: BASOPHILS # (AUTO) 0.5 10^3/uL (0.0-0.1); BASOPHILS % (AUTO) 2 % (0-10); EOSINOPHILS # (AUTO) 0.1 10^3/uL (0.0-0.3); EOSINOPHILS % (AUTO) 0 % (0-10); HEMATOCRIT 41 % (35-52); HEMOGLOBIN 12.4 G/DL (11.5-16.0); LYMPHOCYTES # (AUTO) 7.6 X 10^3 (1.0-4.0); LYMPHOCYTES % (AUTO) 40 % (12-44); MEAN CORPUSCULAR HEMOGLOBIN 26 PG (25-34); MEAN CORPUSCULAR HGB CONC 30 G/DL (32-36); MEAN CORPUSCULAR VOLUME 87 FL (80-99); MONOCYTES # (AUTO) 0.4 X 10^3 (0.0-1.0); MONOCYTES % (AUTO) 2 % (0-12); NEUTROPHILS # (AUTO) 10.7 X 10^3 (1.8-7.8); NEUTROPHILS % (AUTO) 56 % (42-75); PLATELET COUNT 42 10^3/uL (130-400); RED CELL DISTRIBUTION WIDTH 19.3 % (10.0-14.5); WHITE BLOOD COUNT 19.2 10^3/uL (4.3-11.0)
[2018-04-13 13:03] LABS: ALANINE AMINOTRANSFERASE 29 U/L (0-55); ALBUMIN 4.4 GM/DL (3.2-4.5); ALKALINE PHOSPHATASE 59 U/L (40-136); BILIRUBIN,TOTAL 0.7 MG/DL (0.1-1.0); BUN/CREATININE RATIO 22; CALCIUM 9.4 MG/DL (8.5-10.1); CARBON DIOXIDE 30 MMOL/L (21-32); CHLORIDE 101 MMOL/L (98-107); CREATININE SERUM 0.74 MG/DL (0.60-1.30); GFR ESTIMATED > 60; GLUCOSE 91 MG/DL (70-105); SODIUM 139 MMOL/L (135-145); TOTAL PROTEIN 6.8 GM/DL (6.4-8.2)
[2018-05-09 13:16] LABS: HEMATOCRIT 41 % (35-52); HEMOGLOBIN 12.1 G/DL (11.5-16.0); MEAN CORPUSCULAR HEMOGLOBIN 26 PG (25-34); MEAN CORPUSCULAR HGB CONC 30 G/DL (32-36); MEAN CORPUSCULAR VOLUME 87 FL (80-99); PLATELET COUNT 65 10^3/uL (130-400); RED CELL DISTRIBUTION WIDTH 20.5 % (10.0-14.5); WHITE BLOOD COUNT 29.1 10^3/uL (4.3-11.0)
== END | disposition home or self-care (01) ==
LOC: ONC 02-08 10:50
PROVIDERS: ATTEND Internal Medicine Hematology & Oncology
DX: D75.81 Myelofibrosis (principal); D69.6 Thrombocytopenia, unspecified; D72.829 Elevated white blood cell count, unspecified; Z79.899 Other long term (current) drug therapy; Z15.89 Genetic susceptibility to other disease
CPT/HCPCS: 36415; 80053; 83615; 85025; 99213

== ENCOUNTER → 2018-08-02 | Outpatient (CLI) | payer MEDICARE, OTHER ==
[2018-08-02 15:55] LABS: ABG BASE EXCESS 3.9 MMOL/L (-2.5-2.5); ABG OXYGEN SATURATION 95 % (94-100); ABG PCO2 42 MMHG (35-45); ABG PH 7.43 (7.37-7.43); ABG PO2 68 MMHG (79-93); ABG TCO2 29.7 MMOL/L (21.0-31.0)
[2018-08-02 15:56] LABS: ALLENS TEST POSITIVE
[2018-08-02 15:57] LABS: INSPIRED O2 ROOM AIR; PATIENT TEMP 96.2; VENTILATOR NO
== END ==
LOC: LAB 15:08
PROVIDERS: ATTEND Nurse Practitioner Family
DX: R06.00 Dyspnea, unspecified (principal); J30.9 Allergic rhinitis, unspecified; R06.89 Other abnormalities of breathing; R05 Cough; J44.9 Chronic obstructive pulmonary disease, unspecified
CPT/HCPCS: 82805

== ENCOUNTER 2018-08-23 12:58 | Outpatient (RCR) | payer MEDICARE, OTHER ==
[2018-06-21 13:56] LABS: BASOPHILS # (AUTO) 0.3 10^3/uL (0.0-0.1); BASOPHILS % (AUTO) 2 % (0-10); EOSINOPHILS # (AUTO) 0.1 10^3/uL (0.0-0.3); EOSINOPHILS % (AUTO) 0 % (0-10); HEMATOCRIT 39 % (35-52); HEMOGLOBIN 12.1 G/DL (11.5-16.0); LYMPHOCYTES % (AUTO) 40 % (12-44); MEAN CORPUSCULAR HEMOGLOBIN 27 PG (25-34); MEAN CORPUSCULAR HGB CONC 31 G/DL (32-36); MEAN CORPUSCULAR VOLUME 87 FL (80-99); MONOCYTES # (AUTO) 0.2 X 10^3 (0.0-1.0); MONOCYTES % (AUTO) 1 % (0-12); NEUTROPHILS # (AUTO) 9.9 X 10^3 (1.8-7.8); NEUTROPHILS % (AUTO) 57 % (42-75); PLATELET COUNT 44 10^3/uL (130-400); RED CELL DISTRIBUTION WIDTH 19.4 % (10.0-14.5); WHITE BLOOD COUNT 17.5 10^3/uL (4.3-11.0)
[2018-06-21 14:14] LABS: ALANINE AMINOTRANSFERASE 31 U/L (0-55); ALBUMIN 4.5 GM/DL (3.2-4.5); ALKALINE PHOSPHATASE 49 U/L (40-136); BILIRUBIN,TOTAL 0.6 MG/DL (0.1-1.0); BUN/CREATININE RATIO 19; CALCIUM 9.9 MG/DL (8.5-10.1); CARBON DIOXIDE 30 MMOL/L (21-32); CHLORIDE 101 MMOL/L (98-107); CREATININE SERUM 0.68 MG/DL (0.60-1.30); GFR ESTIMATED > 60; GLUCOSE 100 MG/DL (70-105); POTASSIUM 4.5 MMOL/L (3.6-5.0); SODIUM 140 MMOL/L (135-145); TOTAL PROTEIN 6.7 GM/DL (6.4-8.2)
[2018-08-23 13:16] LABS: BASOPHILS # (AUTO) 0.3 10^3/uL (0.0-0.1); BASOPHILS % (AUTO) 1 % (0-10); EOSINOPHILS # (AUTO) 0.1 10^3/uL (0.0-0.3); EOSINOPHILS % (AUTO) 0 % (0-10); HEMATOCRIT 41 % (35-52); HEMOGLOBIN 12.7 G/DL (11.5-16.0); LYMPHOCYTES # (AUTO) 9.8 X 10^3 (1.0-4.0); LYMPHOCYTES % (AUTO) 41 % (12-44); MEAN CORPUSCULAR HEMOGLOBIN 26 PG (25-34); MEAN CORPUSCULAR HGB CONC 31 G/DL (32-36); MEAN CORPUSCULAR VOLUME 85 FL (80-99); MONOCYTES # (AUTO) 0.6 X 10^3 (0.0-1.0); MONOCYTES % (AUTO) 2 % (0-12); NEUTROPHILS # (AUTO) 13.1 X 10^3 (1.8-7.8); NEUTROPHILS % (AUTO) 55 % (42-75); PLATELET COUNT 43 10^3/uL (130-400); RED CELL DISTRIBUTION WIDTH 19.4 % (10.0-14.5); WHITE BLOOD COUNT 23.8 10^3/uL (4.3-11.0)
[2018-08-23 13:35] LABS: ALANINE AMINOTRANSFERASE 27 U/L (0-55); ALBUMIN 4.6 GM/DL (3.2-4.5); ALKALINE PHOSPHATASE 59 U/L (40-136); BILIRUBIN,TOTAL 0.6 MG/DL (0.1-1.0); BUN/CREATININE RATIO 22; CALCIUM 10.2 MG/DL (8.5-10.1); CARBON DIOXIDE 30 MMOL/L (21-32); CHLORIDE 102 MMOL/L (98-107); CREATININE SERUM 0.72 MG/DL (0.60-1.30); GFR ESTIMATED > 60; GLUCOSE 95 MG/DL (70-105); POTASSIUM 4.2 MMOL/L (3.6-5.0); SODIUM 139 MMOL/L (135-145); TOTAL PROTEIN 7.1 GM/DL (6.4-8.2)
== END 2018-09-19 | disposition home or self-care (01) ==
LOC: ONC 12:58
PROVIDERS: ATTEND Internal Medicine Hematology & Oncology
DX: D75.81 Myelofibrosis (principal); D69.6 Thrombocytopenia, unspecified; D72.829 Elevated white blood cell count, unspecified; Z79.899 Other long term (current) drug therapy
CPT/HCPCS: 36415; 80053; 83615; 85025; 99213

== ENCOUNTER → 2018-08-23 | Outpatient (CLI) | payer MEDICARE, OTHER ==
[~2018-08-23] MED LIST changes: +HOLD METFORMIN - RECEIVED CONTRAST 20 ML VIAL IV SCH; +IOHEXOL 350 MG/ML 100 ML (OMNIPAQUE 350) VIAL IV ONE; -LIDOCAINE 2% ONE; +NS 100 ML (IVPB) BAG IV ONE
--- NOTE | 2018-08-23 17:31 | Diagnostic Imaging Report ---
PROCEDURE: CT chest with contrast only. TECHNIQUE: Multiple contiguous axial images were obtained through the chest after administration of intravenous contrast. Auto Exposure Controls were utilized during the CT exam to meet ALARA standards for radiation dose reduction. INDICATION: Cough and shortness of air. COMPARISON: No prior studies are available for comparison. FINDINGS: No axillary lymphadenopathy is seen. No definite hilar or mediastinal lymphadenopathy is detected. There is no pericardial or pleural fluid detected. Pulmonary parenchymal evaluation does show some centrilobular emphysematous changes. There is a slightly irregular nodule in the left lower lobe measuring 7-8 mm, indeterminate. Tiny subpleural nodule in the posterolateral right lower lobe is seen measuring 4 mm. Tiny posterolateral subpleural nodule in the left lower lobe is noted measuring 3 mm. No other parenchymal abnormalities are seen. Upper abdomen does show apparent splenomegaly, although the entire spleen was not included on this exam. IMPRESSION: 1. Centrilobular emphysematous changes. There is a slightly irregular nodule in the left lower lobe approximately 7-8 mm in size. This is too small to percutaneously biopsy. PET scan may be useful for further evaluation, although this is somewhat small for PET threshold as well. Close interval followup would be recommended. Dictated by: Dictated on workstation # [id number]
== END ==
LOC: RAD 14:26
PROVIDERS: ATTEND Nurse Practitioner Family
DX: J43.9 Emphysema, unspecified (principal); J30.9 Allergic rhinitis, unspecified; R91.1 Solitary pulmonary nodule
CPT/HCPCS: 71260

== ENCOUNTER → 2018-12-06 | Outpatient (CLI) | payer MEDICARE, OTHER ==
[2018-12-06 12:36] LABS: BUN/CREATININE RATIO 21; CREATININE SERUM 0.78 MG/DL (0.60-1.30); GFR ESTIMATED > 60
--- NOTE | 2018-12-06 15:36 | Diagnostic Imaging Report ---
PROCEDURE: CT chest with contrast only. TECHNIQUE: Multiple contiguous axial images were obtained through the chest after administration of intravenous contrast. Auto Exposure Controls were utilized during the CT exam to meet ALARA standards for radiation dose reduction. INDICATION: COPD and shortness of breath as well as hypoxemia and cough. COMPARISON: Correlation is made with prior CT chest from 08/23/2018. FINDINGS: No axillary lymphadenopathy is detected. No mediastinal or hilar lymphadenopathy is identified. No pericardial or pleural fluid is detected. There does appear to be hiatal hernia present. Centrilobular emphysematous changes are again noted. Previously noted slightly irregular nodule in the left lower lobe is stable at 7 mm. Subpleural nodule posterolaterally in the left lower lobe is stable at 2 to 3 mm. Subpleural nodule in the right lower lobe may be slightly larger at 5 mm compared with 4 mm. No new mass is seen. Upper abdomen appears stable. IMPRESSION: Stable left lower lobe pulmonary nodules with perhaps minimal increase in size of right lower lobe pulmonary nodule. Continued close followup with repeat CT chest in six months is recommended. Dictated by: Dictated on workstation # [id number]
== END ==
LOC: RAD 12:04
PROVIDERS: ATTEND Nurse Practitioner Family
DX: J44.9 Chronic obstructive pulmonary disease, unspecified (principal); R91.8 Other nonspecific abnormal finding of lung field
CPT/HCPCS: 36415; 71260; 82565; 84520

== ENCOUNTER 2018-12-27 14:39 | Outpatient (RCR) | payer MEDICARE, OTHER ==
[2018-10-26 13:35] LABS: BASOPHILS # (AUTO) 0.4 10^3/uL (0.0-0.1); BASOPHILS % (AUTO) 2 % (0-10); EOSINOPHILS # (AUTO) 0.1 10^3/uL (0.0-0.3); EOSINOPHILS % (AUTO) 0 % (0-10); HEMATOCRIT 42 % (35-52); HEMOGLOBIN 13.2 G/DL (11.5-16.0); LYMPHOCYTES # (AUTO) 8.4 X 10^3 (1.0-4.0); LYMPHOCYTES % (AUTO) 42 % (12-44); MEAN CORPUSCULAR HEMOGLOBIN 26 PG (25-34); MEAN CORPUSCULAR HGB CONC 31 G/DL (32-36); MEAN CORPUSCULAR VOLUME 85 FL (80-99); MONOCYTES # (AUTO) 0.5 X 10^3 (0.0-1.0); MONOCYTES % (AUTO) 2 % (0-12); NEUTROPHILS # (AUTO) 10.4 X 10^3 (1.8-7.8); NEUTROPHILS % (AUTO) 53 % (42-75); RED CELL DISTRIBUTION WIDTH 20.6 % (10.0-14.5); WHITE BLOOD COUNT 19.7 10^3/uL (4.3-11.0)
[2018-10-26 13:37] LABS: PLATELET COUNT 41 10^3/uL (130-400)
[2018-10-26 13:57] LABS: ALANINE AMINOTRANSFERASE 31 U/L (0-55); ALBUMIN 4.6 GM/DL (3.2-4.5); ALKALINE PHOSPHATASE 60 U/L (40-136); BILIRUBIN,TOTAL 0.7 MG/DL (0.1-1.0); BUN/CREATININE RATIO 24; CALCIUM 9.8 MG/DL (8.5-10.1); CARBON DIOXIDE 28 MMOL/L (21-32); CHLORIDE 102 MMOL/L (98-107); CREATININE SERUM 0.75 MG/DL (0.60-1.30); GFR ESTIMATED > 60; GLUCOSE 100 MG/DL (70-105); POTASSIUM 4.2 MMOL/L (3.6-5.0); SODIUM 138 MMOL/L (135-145); TOTAL PROTEIN 6.9 GM/DL (6.4-8.2)
[2018-12-27 14:53] LABS: BASOPHILS # (AUTO) 0.3 10^3/uL (0.0-0.1); BASOPHILS % (AUTO) 1 % (0-10); EOSINOPHILS % (AUTO) 0 % (0-10); HEMATOCRIT 40 % (35-52); HEMOGLOBIN 12.2 G/DL (11.5-16.0); LYMPHOCYTES # (AUTO) 8.8 X 10^3 (1.0-4.0); LYMPHOCYTES % (AUTO) 38 % (12-44); MEAN CORPUSCULAR HEMOGLOBIN 26 PG (25-34); MEAN CORPUSCULAR HGB CONC 31 G/DL (32-36); MEAN CORPUSCULAR VOLUME 86 FL (80-99); MONOCYTES # (AUTO) 0.5 X 10^3 (0.0-1.0); MONOCYTES % (AUTO) 2 % (0-12); NEUTROPHILS # (AUTO) 13.5 X 10^3 (1.8-7.8); NEUTROPHILS % (AUTO) 59 % (42-75); RED CELL DISTRIBUTION WIDTH 20.1 % (10.0-14.5); WHITE BLOOD COUNT 23.1 10^3/uL (4.3-11.0)
[2018-12-27 14:59] LABS: PLATELET COUNT 60 10^3/uL (130-400)
[2018-12-27 15:17] LABS: ALANINE AMINOTRANSFERASE 30 U/L (0-55); ALBUMIN 4.2 GM/DL (3.2-4.5); ALKALINE PHOSPHATASE 62 U/L (40-136); BILIRUBIN,TOTAL 0.6 MG/DL (0.1-1.0); BUN/CREATININE RATIO 22; CALCIUM 9.2 MG/DL (8.5-10.1); CARBON DIOXIDE 26 MMOL/L (21-32); CHLORIDE 104 MMOL/L (98-107); CREATININE SERUM 0.76 MG/DL (0.60-1.30); GFR ESTIMATED > 60; GLUCOSE 92 MG/DL (70-105); POTASSIUM 4.3 MMOL/L (3.6-5.0); SODIUM 139 MMOL/L (135-145); TOTAL PROTEIN 6.5 GM/DL (6.4-8.2)
== END 2019-01-24 | disposition home or self-care (01) ==
LOC: ONC 14:39
PROVIDERS: ATTEND Internal Medicine Hematology & Oncology
DX: D75.81 Myelofibrosis (principal); D69.6 Thrombocytopenia, unspecified; D72.829 Elevated white blood cell count, unspecified; Z79.899 Other long term (current) drug therapy
CPT/HCPCS: 36415; 80053; 83615; 85025; 99213

== ENCOUNTER 2019-03-01 12:51 | Outpatient (RCR) | payer MEDICARE, OTHER ==
[2019-03-01 13:34] LABS: BASOPHILS # (AUTO) 0.3 10^3/uL (0.0-0.1); BASOPHILS % (AUTO) 1 % (0-10); EOSINOPHILS # (AUTO) 0.1 10^3/uL (0.0-0.3); EOSINOPHILS % (AUTO) 0 % (0-10); HEMATOCRIT 40 % (35-52); HEMOGLOBIN 12.3 G/DL (11.5-16.0); LYMPHOCYTES # (AUTO) 7.9 X 10^3 (1.0-4.0); LYMPHOCYTES % (AUTO) 36 % (12-44); MEAN CORPUSCULAR HEMOGLOBIN 26 PG (25-34); MEAN CORPUSCULAR HGB CONC 31 G/DL (32-36); MEAN CORPUSCULAR VOLUME 85 FL (80-99); MONOCYTES # (AUTO) 0.5 X 10^3 (0.0-1.0); MONOCYTES % (AUTO) 2 % (0-12); NEUTROPHILS # (AUTO) 13.1 X 10^3 (1.8-7.8); NEUTROPHILS % (AUTO) 60 % (42-75); PLATELET COUNT 60 10^3/uL (130-400); RED CELL DISTRIBUTION WIDTH 20.2 % (10.0-14.5); WHITE BLOOD COUNT 21.8 10^3/uL (4.3-11.0)
[2019-03-01 13:43] LABS: ALANINE AMINOTRANSFERASE 23 U/L (0-55); ALBUMIN 4.4 GM/DL (3.2-4.5); ALKALINE PHOSPHATASE 79 U/L (40-136); BILIRUBIN,TOTAL 0.5 MG/DL (0.1-1.0); BUN/CREATININE RATIO 21; CALCIUM 9.2 MG/DL (8.5-10.1); CARBON DIOXIDE 28 MMOL/L (21-32); CHLORIDE 104 MMOL/L (98-107); CREATININE SERUM 0.77 MG/DL (0.60-1.30); GFR ESTIMATED > 60; GLUCOSE 107 MG/DL (70-105); POTASSIUM 4.3 MMOL/L (3.6-5.0); SODIUM 140 MMOL/L (135-145); TOTAL PROTEIN 6.8 GM/DL (6.4-8.2)
[2019-03-01 14:07] LABS: BILIRUBIN,URINE NEGATIVE (NEGATIVE); CLARITY,URINE CLEAR; COLOR,URINE YELLOW; GLUCOSE, URINE (UA) NEGATIVE (NEGATIVE); KETONES,URINE NEGATIVE (NEGATIVE); LEUKOCYTE ESTERASE ,URINE NEGATIVE (NEGATIVE); NITRITE,URINE NEGATIVE (NEGATIVE); PH,URINE 5.5 (5-9); PROTEIN,URINE NEGATIVE (NEGATIVE)
[2019-03-01 14:18] LABS: BACTERIA,URINE TRACE /HPF; WBC,URINE RARE /HPF
== END 2019-05-30 | disposition home or self-care (01) ==
LOC: ONC 12:51
PROVIDERS: ATTEND Internal Medicine Hematology & Oncology
DX: D75.81 Myelofibrosis (principal); D69.6 Thrombocytopenia, unspecified; D72.829 Elevated white blood cell count, unspecified; Z79.899 Other long term (current) drug therapy
CPT/HCPCS: 80053; 81000; 83615; 85025; 99213

== ENCOUNTER → 2019-08-02 | Outpatient (CLI) | payer MEDICARE, OTHER ==
[~2019-08-02] MED LIST changes: +CATHETER FLUSH 10 ML SYR IV PRN
[2019-08-02 09:45] LABS: BUN/CREATININE RATIO 22; CREATININE SERUM 0.74 MG/DL (0.60-1.30); GFR ESTIMATED > 60
--- NOTE | 2019-08-02 10:43 | Diagnostic Imaging Report ---
PROCEDURE: CT chest with contrast only. TECHNIQUE: Multiple contiguous axial images were obtained through the chest after administration of intravenous contrast. Auto Exposure Controls were utilized during the CT exam to meet ALARA standards for radiation dose reduction. INDICATION: Basilar pulmonary nodule. COMPARISON: Chest CT of 12/06/2018 and 08/23/2018. FINDINGS: The small mass in the patient's left lower lobe appears of greater density than on the comparison studies and also measures slightly larger today at about 9 mm, previously about 7 mm. Also now apparent at today's study is some ill definition of its borders and suggestion of spiculation. The mass is viewed as suspicious for malignancy. It is acknowledged to be at the borderline size for metabolic PET sensitivity; however, this may provide additional utility and is suggested for its further workup. A small subpleural mass in the right lower lobe measures an unchanged 4.5 mm and is favored to be benign. An additional sub-solid 3 mm subpleural nodule in the right upper lobe is also unchanged and likely benign as well. There are background changes of COPD in the lungs superimposed and chronic. No pathological-appearing thoracic lymph nodes. The aorta is patent and nonaneurysmal. There are aortic and coronary arterial atherosclerotic vascular calcifications. There is a small hiatal hernia. There is nodular thickening of the right adrenal gland, unchanged from the comparison studies, measuring 13 x 9 mm and indeterminate. There is some mild hepatic steatosis with no identifiable liver mass with that structure incompletely visualized. IMPRESSION: 1. The small mass in the left lower lobe has slightly increased in size and density and now shows features suspicious for spiculation. This substantially heightens the index of suspicion for malignancy and, despite its small size, a metabolic PET CT is suggested. 2. Additional subcentimeter subpleural nodules on the right are unchanged and favored to be benign. 3. No evidence for thoracic adenopathy. 4. Unchanged indeterminate nodularity of the right adrenal gland, attention should be directed to that structure at the recommended metabolic PET CT. Dictated by: Dictated on workstation # [id number]
== END ==
LOC: RAD 09:08
PROVIDERS: ATTEND Nurse Practitioner Family
DX: J44.9 Chronic obstructive pulmonary disease, unspecified (principal); R09.02 Hypoxemia; R91.8 Other nonspecific abnormal finding of lung field
CPT/HCPCS: 36415; 71260; 82565; 84520

== ENCOUNTER 2019-08-29 13:35 | Outpatient (RCR) | payer MEDICARE, OTHER ==
[2019-06-06 12:49] LABS: BASOPHILS # (AUTO) 0.4 10^3/uL (0.0-0.1); BASOPHILS % (AUTO) 2 % (0-10); EOSINOPHILS # (AUTO) 0.1 10^3/uL (0.0-0.3); EOSINOPHILS % (AUTO) 0 % (0-10); HEMATOCRIT 41 % (35-52); HEMOGLOBIN 12.4 G/DL (11.5-16.0); LYMPHOCYTES # (AUTO) 8.2 X 10^3 (1.0-4.0); LYMPHOCYTES % (AUTO) 38 % (12-44); MEAN CORPUSCULAR HEMOGLOBIN 26 PG (25-34); MEAN CORPUSCULAR HGB CONC 31 G/DL (32-36); MEAN CORPUSCULAR VOLUME 86 FL (80-99); MONOCYTES # (AUTO) 0.7 X 10^3 (0.0-1.0); MONOCYTES % (AUTO) 3 % (0-12); NEUTROPHILS # (AUTO) 12.3 X 10^3 (1.8-7.8); NEUTROPHILS % (AUTO) 57 % (42-75); WHITE BLOOD COUNT 21.7 10^3/uL (4.3-11.0)
[2019-06-06 12:51] LABS: PLATELET COUNT 37 10^3/uL (130-400); SMEAR SCAN COMMENT YES
[2019-06-06 13:14] LABS: ALANINE AMINOTRANSFERASE 26 U/L (0-55); ALBUMIN 4.6 GM/DL (3.2-4.5); ALKALINE PHOSPHATASE 70 U/L (40-136); BILIRUBIN,TOTAL 0.6 MG/DL (0.1-1.0); BUN/CREATININE RATIO 22; CALCIUM 9.5 MG/DL (8.5-10.1); CARBON DIOXIDE 29 MMOL/L (21-32); CHLORIDE 102 MMOL/L (98-107); CREATININE SERUM 0.81 MG/DL (0.60-1.30); GFR ESTIMATED > 60; GLUCOSE 98 MG/DL (70-105); POTASSIUM 4.4 MMOL/L (3.6-5.0); SODIUM 140 MMOL/L (135-145); TOTAL PROTEIN 6.8 GM/DL (6.4-8.2)
[2019-08-29 14:09] LABS: BASOPHILS # (AUTO) 0.4 10^3/uL (0.0-0.1); BASOPHILS % (AUTO) 2 % (0-10); EOSINOPHILS # (AUTO) 0.1 10^3/uL (0.0-0.3); EOSINOPHILS % (AUTO) 0 % (0-10); HEMATOCRIT 38 % (35-52); LYMPHOCYTES # (AUTO) 7.9 X 10^3 (1.0-4.0); LYMPHOCYTES % (AUTO) 35 % (12-44); MEAN CORPUSCULAR HEMOGLOBIN 27 PG (25-34); MEAN CORPUSCULAR HGB CONC 31 G/DL (32-36); MEAN CORPUSCULAR VOLUME 86 FL (80-99); MONOCYTES # (AUTO) 0.6 X 10^3 (0.0-1.0); MONOCYTES % (AUTO) 3 % (0-12); NEUTROPHILS # (AUTO) 13.5 X 10^3 (1.8-7.8); NEUTROPHILS % (AUTO) 60 % (42-75); PLATELET COUNT 51 10^3/uL (130-400); WHITE BLOOD COUNT 22.5 10^3/uL (4.3-11.0)
[2019-08-29 14:29] LABS: ALANINE AMINOTRANSFERASE 29 U/L (0-55); ALBUMIN 4.4 GM/DL (3.2-4.5); ALKALINE PHOSPHATASE 63 U/L (40-136); BILIRUBIN,TOTAL 0.6 MG/DL (0.1-1.0); BUN/CREATININE RATIO 26; CALCIUM 9.4 MG/DL (8.5-10.1); CARBON DIOXIDE 29 MMOL/L (21-32); CHLORIDE 104 MMOL/L (98-107); CREATININE SERUM 0.74 MG/DL (0.60-1.30); GFR ESTIMATED > 60; GLUCOSE 94 MG/DL (70-105); POTASSIUM 4.4 MMOL/L (3.6-5.0); SODIUM 139 MMOL/L (135-145); TOTAL PROTEIN 6.8 GM/DL (6.4-8.2)
== END 2019-08-29 16:40 | disposition home or self-care (01) ==
LOC: ONC 13:35
PROVIDERS: ATTEND Internal Medicine Hematology & Oncology
DX: D75.81 Myelofibrosis (principal); D69.6 Thrombocytopenia, unspecified; D72.820 Lymphocytosis (symptomatic); Z79.899 Other long term (current) drug therapy; Z15.89 Genetic susceptibility to other disease
CPT/HCPCS: 80053; 83615; 85025; 99213

== ENCOUNTER → 2019-10-30 | Outpatient (CLI) | payer MEDICARE, OTHER ==
[2019-10-30 11:42] LABS: CREATININE SERUM 0.81 MG/DL (0.60-1.30); GFR ESTIMATED > 60
[2019-10-30 11:43] LABS: BUN/CREATININE RATIO 22
--- NOTE | 2019-10-30 13:00 | Diagnostic Imaging Report ---
PROCEDURE: CT chest with contrast only. TECHNIQUE: Multiple contiguous axial images were obtained through the chest after administration of intravenous contrast. Auto Exposure Controls were utilized during the CT exam to meet ALARA standards for radiation dose reduction. DATE: October 30, 2019. COMPARISON: CT chest August 02, 2019. December 06, 2018. August 23, 2018. INDICATION: 83-year-old female, cough. Shortness of breath. FINDINGS: There is a left lower lobe pulmonary nodule on axial image 85 which measures 9 mm in size on axial image 85. On initial comparison CT chest of August 23, 2018, this measured approximately 6 mm in size. The nodule is increasing in size over time. There is a 3 mm noncalcified left lower lobe pulmonary nodule on axial image 83 which is unchanged since at least August 23, 2018. There are mild linear opacities in the lingula which likely reflect scarring and/or atelectasis. There are findings of emphysema present. There is a 5 mm right lower lobe pulmonary nodule on axial image 90 which is unchanged. There is a 4 mm pleurally-based right-sided pulmonary nodule on axial image 75 which is also unchanged. There is no additional focal airspace consolidation. There is no pneumothorax. The central airways are patent. There is no pleural effusion. There are coronary artery calcifications and additional areas of atherosclerotic disease. The heart is not enlarged. There is no pericardial effusion. There is no identified central pulmonary embolus. There is no identified abnormally enlarged mediastinal, hilar, or axillary lymph node which meets CT size criteria for adenopathy. The patient is status post cholecystectomy. There is a small hiatal hernia. There is a small fat-containing left posterior diaphragmatic hernia. There is a low-attenuation right adrenal nodule on axial image 124 measuring 1.5 cm in size with internal attenuation of 14 Hounsfield units on this postcontrast CT. This nodule is unchanged in size since August 23, 2018. There are multilevel degenerative changes of the spine. There are multiple subacute to chronic appearing right anterior rib deformities. There is no identified concerning focal bone lesion. IMPRESSION: CT CHEST. 1. 9 mm left lower lobe pulmonary nodule which measured approximately 6 mm in size on August 23, 2018. This nodule is increasing in size over time. This is concerning for malignancy. CT-guided biopsy is recommended for definitive diagnosis. 2. Additional subcentimeter pulmonary nodules bilaterally are unchanged. 3. No evidence of metastatic shira disease. 4. Small fat-containing left posterior diaphragmatic hernia. 5. Stable right adrenal nodule. This is very low in attenuation on postcontrast imaging and is suspicious for an adrenal adenoma although cannot be definitively diagnosed on this study. Recommend comparison with prior cross-sectional imaging if available. Particularly if the left lower lobe pulmonary nodule mentioned above is compatible with neoplasm, further assessment of the right adrenal nodule would be recommended with dedicated adrenal mass protocol CT abdomen without and with intravenous contrast. Dictated by: Dictated on workstation # [id number]
== END ==
LOC: RAD 11:00
PROVIDERS: ATTEND Nurse Practitioner Family
DX: J44.9 Chronic obstructive pulmonary disease, unspecified (principal); K44.9 Diaphragmatic hernia without obstruction or gangrene; R91.8 Other nonspecific abnormal finding of lung field; Z87.891 Personal history of nicotine dependence
CPT/HCPCS: 36415; 71260; 82565; 84520

== ENCOUNTER 2020-02-12 13:19 | Outpatient (RCR) | payer MEDICARE, OTHER ==
[2019-11-21 11:11] LABS: BASOPHILS # (AUTO) 0.6 10^3/uL (0.0-0.1); BASOPHILS % (AUTO) 2 % (0-10); EOSINOPHILS % (AUTO) 0 % (0-10); HEMATOCRIT 41 % (35-52); HEMOGLOBIN 12.4 G/DL (11.5-16.0); LYMPHOCYTES # (AUTO) 11.9 X 10^3 (1.0-4.0); LYMPHOCYTES % (AUTO) 33 % (12-44); MEAN CORPUSCULAR HEMOGLOBIN 26 PG (25-34); MEAN CORPUSCULAR HGB CONC 31 G/DL (32-36); MEAN CORPUSCULAR VOLUME 86 FL (80-99); MONOCYTES # (AUTO) 1.5 X 10^3 (0.0-1.0); MONOCYTES % (AUTO) 4 % (0-12); NEUTROPHILS # (AUTO) 21.9 X 10^3 (1.8-7.8); NEUTROPHILS % (AUTO) 61 % (42-75); PLATELET COUNT 49 10^3/uL (130-400)
[2019-11-21 11:16] LABS: SMEAR SCAN COMMENT YES; WHITE BLOOD COUNT 35.9 10^3/uL (4.3-11.0)
[2019-11-21 11:35] LABS: ALANINE AMINOTRANSFERASE 33 U/L (0-55); ALBUMIN 4.6 GM/DL (3.2-4.5); ALKALINE PHOSPHATASE 70 U/L (40-136); BILIRUBIN,TOTAL 0.6 MG/DL (0.1-1.0); BUN/CREATININE RATIO 20; CALCIUM 9.7 MG/DL (8.5-10.1); CARBON DIOXIDE 28 MMOL/L (21-32); CHLORIDE 100 MMOL/L (98-107); CREATININE SERUM 0.71 MG/DL (0.60-1.30); GFR ESTIMATED > 60; GLUCOSE 100 MG/DL (70-105); POTASSIUM 3.8 MMOL/L (3.6-5.0); SODIUM 138 MMOL/L (135-145); TOTAL PROTEIN 7.1 GM/DL (6.4-8.2)
[2020-02-12 13:41] LABS: EOSINOPHILS % (AUTO) 0 % (0-10)
[2020-02-12 13:42] LABS: BASOPHILS # (AUTO) 0.5 10^3/uL (0.0-0.1); BASOPHILS % (AUTO) 1 % (0-10); HEMATOCRIT 41 % (35-52); HEMOGLOBIN 12.3 g/dL (11.5-16.0); LYMPHOCYTES # (AUTO) 9.4 10^3/uL (1.0-4.0); LYMPHOCYTES % (AUTO) 25 % (12-44); MEAN CORPUSCULAR HEMOGLOBIN 27 pg (25-34); MEAN CORPUSCULAR HGB CONC 30 g/dL (32-36); MEAN CORPUSCULAR VOLUME 90 fL (80-99); MONOCYTES # (AUTO) 1.8 10^3/uL (0.0-1.0); MONOCYTES % (AUTO) 5 % (0-12); NEUTROPHILS # (AUTO) 23.6 10^3/uL (1.8-7.8); NEUTROPHILS % (AUTO) 62 % (42-75)
[2020-02-12 13:56] LABS: WHITE BLOOD COUNT 38.1 10^3/uL (4.3-11.0)
[2020-02-12 13:57] LABS: PLATELET COUNT 39 10^3/uL (130-400)
[2020-02-12 14:00] LABS: ALANINE AMINOTRANSFERASE 32 U/L (0-55); ALBUMIN 4.6 GM/DL (3.2-4.5); ALKALINE PHOSPHATASE 67 U/L (40-136); BILIRUBIN,TOTAL 0.5 MG/DL (0.1-1.0); BUN/CREATININE RATIO 24; CALCIUM 9.5 MG/DL (8.5-10.1); CARBON DIOXIDE 28 MMOL/L (21-32); CHLORIDE 102 MMOL/L (98-107); CREATININE SERUM 0.72 MG/DL (0.60-1.30); GFR ESTIMATED > 60; GLUCOSE 103 MG/DL (70-105); POTASSIUM 4.6 MMOL/L (3.6-5.0); SODIUM 140 MMOL/L (135-145); TOTAL PROTEIN 7.2 GM/DL (6.4-8.2)
== END 2020-02-19 | disposition home or self-care (01) ==
LOC: ONC 13:19
PROVIDERS: ATTEND Internal Medicine Hematology & Oncology
DX: Z51.11 Encounter for antineoplastic chemotherapy (principal); D47.1 Chronic myeloproliferative disease; D72.829 Elevated white blood cell count, unspecified; D69.6 Thrombocytopenia, unspecified; D72.820 Lymphocytosis (symptomatic); Z79.899 Other long term (current) drug therapy; Z15.89 Genetic susceptibility to other disease
CPT/HCPCS: 80053; 83615; 85025; G0463; 99213

== ENCOUNTER → 2020-05-20 | Outpatient (CLI) | payer MEDICARE, OTHER ==
[2020-05-20 12:57] LABS: HEMOGLOBIN 11.4 g/dL (11.5-16.0)
[2020-05-20 12:59] LABS: BASOPHILS # (AUTO) 0.6 10^3/uL (0.0-0.1); BASOPHILS % (AUTO) 1 % (0-10); EOSINOPHILS % (AUTO) 0 % (0-10); HEMATOCRIT 39 % (35-52); LYMPHOCYTES # (AUTO) 10.1 10^3/uL (1.0-4.0); LYMPHOCYTES % (AUTO) 18 % (12-44); MEAN CORPUSCULAR HEMOGLOBIN 27 pg (25-34); MEAN CORPUSCULAR HGB CONC 30 g/dL (32-36); MEAN CORPUSCULAR VOLUME 92 fL (80-99); MONOCYTES # (AUTO) 2.5 10^3/uL (0.0-1.0); MONOCYTES % (AUTO) 5 % (0-12); NEUTROPHILS # (AUTO) 36.6 10^3/uL (1.8-7.8); NEUTROPHILS % (AUTO) 66 % (42-75); PLATELET COUNT 42 10^3/uL (130-400)
[2020-05-20 13:04] LABS: WHITE BLOOD COUNT 55.9 10^3/uL (4.3-11.0)
[2020-05-20 13:19] LABS: ALANINE AMINOTRANSFERASE 27 U/L (0-55); ALBUMIN 4.5 GM/DL (3.2-4.5); ALKALINE PHOSPHATASE 77 U/L (40-136); BILIRUBIN,TOTAL 0.5 MG/DL (0.1-1.0); BUN/CREATININE RATIO 21; CALCIUM 9.9 MG/DL (8.5-10.1); CARBON DIOXIDE 27 MMOL/L (21-32); CHLORIDE 101 MMOL/L (98-107); GFR ESTIMATED > 60; GLUCOSE 102 MG/DL (70-105); POTASSIUM 4.4 MMOL/L (3.6-5.0); SODIUM 140 MMOL/L (135-145)
[2020-05-20 14:24] LABS: BAND NEUTROPHILS 11 %; BASOPHILS % (MANUAL) 1 %; LYMPHOCYTES % (MANUAL) 20 %; METAMYELOCYTES % 1 %; MONOCYTES % (MANUAL) 3 %; MYELOCYTES % 3 %; NEUTROPHILS % (MANUAL) 56 %
[2020-05-20 14:25] LABS: ANISOCYTOSIS SLIGHT; ATYPICAL LYMPHOCYTES 2 %; BLAST CELLS 3 %; NUCLEATED RED BLOOD CELLS 4; POLYCHROMASIA SLIGHT; STOMATOCYTES SLIGHT; TEAR DROP CELLS SLIGHT
== END ==
LOC: EDSTATUS 02-20 08:08 → ONC 12:46
PROVIDERS: ATTEND Internal Medicine Hematology & Oncology
DX: D47.4 Osteomyelofibrosis (principal); D72.829 Elevated white blood cell count, unspecified; R79.89 Other specified abnormal findings of blood chemistry; R91.8 Other nonspecific abnormal finding of lung field; J44.9 Chronic obstructive pulmonary disease, unspecified
CPT/HCPCS: 80053; 83615; 85007; 85027; G0463; 99213

== ENCOUNTER 2020-07-02 12:35 | Outpatient (RCR) | payer MEDICARE, OTHER ==
[2020-06-14 11:28] LABS: EOSINOPHILS % (AUTO) 0 % (0-10); HEMATOCRIT 38 % (35-52)
[2020-06-14 11:30] LABS: BASOPHILS # (AUTO) 0.8 10^3/uL (0.0-0.1); BASOPHILS % (AUTO) 1 % (0-10); HEMOGLOBIN 11.3 g/dL (11.5-16.0); LYMPHOCYTES # (AUTO) 8.4 10^3/uL (1.0-4.0); LYMPHOCYTES % (AUTO) 16 % (12-44); MEAN CORPUSCULAR HEMOGLOBIN 27 pg (25-34); MEAN CORPUSCULAR HGB CONC 30 g/dL (32-36); MEAN CORPUSCULAR VOLUME 91 fL (80-99); MONOCYTES # (AUTO) 2.5 10^3/uL (0.0-1.0); MONOCYTES % (AUTO) 5 % (0-12); NEUTROPHILS # (AUTO) 35.3 10^3/uL (1.8-7.8); NEUTROPHILS % (AUTO) 66 % (42-75)
[2020-06-14 11:32] LABS: PLATELET COUNT 38 10^3/uL (130-400); WHITE BLOOD COUNT 53.3 10^3/uL (4.3-11.0)
[2020-07-02 12:55] LABS: BASOPHILS # (AUTO) 1.1 10^3/uL (0.0-0.1); BASOPHILS % (AUTO) 2 % (0-10); EOSINOPHILS # (AUTO) 0.1 10^3/uL (0.0-0.3); EOSINOPHILS % (AUTO) 0 % (0-10); HEMATOCRIT 38 % (35-52); HEMOGLOBIN 11.5 g/dL (11.5-16.0); LYMPHOCYTES # (AUTO) 10.1 10^3/uL (1.0-4.0); LYMPHOCYTES % (AUTO) 16 % (12-44); MEAN CORPUSCULAR HEMOGLOBIN 27 pg (25-34); MEAN CORPUSCULAR HGB CONC 30 g/dL (32-36); MEAN CORPUSCULAR VOLUME 92 fL (80-99); MONOCYTES # (AUTO) 3.2 10^3/uL (0.0-1.0); MONOCYTES % (AUTO) 5 % (0-12); NEUTROPHILS # (AUTO) 41.2 10^3/uL (1.8-7.8); NEUTROPHILS % (AUTO) 65 % (42-75); PLATELET COUNT 42 10^3/uL (130-400)
[2020-07-02 12:59] LABS: WHITE BLOOD COUNT 63.9 10^3/uL (4.3-11.0)
[2020-07-02 13:17] LABS: ALANINE AMINOTRANSFERASE 25 U/L (0-55); ALBUMIN 4.6 GM/DL (3.2-4.5); ALKALINE PHOSPHATASE 74 U/L (40-136); BILIRUBIN,TOTAL 0.7 MG/DL (0.1-1.0); BUN/CREATININE RATIO 18; CALCIUM 9.5 MG/DL (8.5-10.1); CARBON DIOXIDE 28 MMOL/L (21-32); CHLORIDE 101 MMOL/L (98-107); CREATININE SERUM 0.73 MG/DL (0.60-1.30); GFR ESTIMATED > 60; GLUCOSE 101 MG/DL (70-105); POTASSIUM 4.1 MMOL/L (3.6-5.0); SODIUM 137 MMOL/L (135-145); TOTAL PROTEIN 7.3 GM/DL (6.4-8.2)
[2020-07-02 13:30] LABS: ABSOLUTE RETIC # 114 10e9/uL (24-90); RETICULOCYTE % 2.69 % (0.50-2.40)
[2020-07-02 14:08] LABS: ANISOCYTOSIS SLIGHT; ATYPICAL LYMPHOCYTES 4 %; BAND NEUTROPHILS 9 %; BASOPHILS % (MANUAL) 1 %; ELLIPT/OVALOCYTES SLIGHT; EOSINOPHILS % (MANUAL) 2 %; LYMPHOCYTES % (MANUAL) 17 %; MONOCYTES % (MANUAL) 2 %; MYELOCYTES % 4 %; NEUTROPHILS % (MANUAL) 60 %; POLYCHROMASIA SLIGHT; PROMYELOCYTES % 1 %; TEAR DROP CELLS SLIGHT
[2020-07-02 14:09] LABS: NUCLEATED RED BLOOD CELLS 3
== END 2020-09-12 | disposition home or self-care (01) ==
LOC: ONC 12:35
PROVIDERS: ATTEND Internal Medicine Hematology & Oncology
DX: D75.81 Myelofibrosis (principal); D72.829 Elevated white blood cell count, unspecified; D72.820 Lymphocytosis (symptomatic); R79.89 Other specified abnormal findings of blood chemistry
CPT/HCPCS: 85025; G0463; 80053; 83615; 85007; 85027; 85045; 85055; 99213